=== PATIENT | male | born 1960 | race Two or more races ===

== ENCOUNTER 2017-03-03 09:19 | Emergency (ER) | payer MEDICAID, OTHER ==
[~2017-03-03] VITALS: Ht 167.6 cm; Wt 107.0 kg
[2017-03-03 10:25] LABS: Basophils # (auto) 0.1 uL; Basophils % (auto) 0.8 % (0.0-2.0); DEFINITIVE VIEW TRANSMISSION; Eosinophils # (auto) 0.7 uL; Eosinophils % (auto) 6.8 % (0.0-7.0); Hematocrit 44.6 % (41.0-53.0); Hemoglobin 15.3 g/dL (13.5-17.5); Lymphocytes # (auto) 2.9 uL; Lymphocytes % (auto) 26.9 % (10.0-50.0); Mean Corpuscular Hemoglobin 28.1 pg (28.0-32.0); Mean Corpuscular Hgb Conc. 34.3 g/dL (32.0-36.0); Mean Corpuscular Volume 81.9 fL (80.0-100.0); Mean Platelet Volume 10.4 fL (7.4-10.4); Monocytes # (auto) 0.7 uL; Monocytes % (auto) 6.2 % (0.0-12.0); Neutrophils # (auto) 6.3 uL; Neutrophils % (auto) 59.3 % (37.0-80.0); Platelet Count (auto) 212 10^3/uL (140-450); Red Cell Distribution Width 13.8 % (11.6-16.0); SUSPECT VIEW TRANSMISSION; White Blood Cell 10.6 10^3/uL (4.4-10.8)
[2017-03-03 10:48] LABS: Albumin 3.6 g/dL (3.4-5.0); Anion Gap 7 (5-15); Blood Urea Nitrogen 17 mg/dL (7-18); Carbon Dioxide 28 mmol/L (21-32); Chloride 103 mmol/L (98-107); Glucose 105 mg/dL (74-106); Potassium 3.9 mmol/L (3.5-5.1); Sodium 138 mmol/L (136-145)
[2017-03-03 10:51] LABS: Aspartate Aminotransferase 19 U/L (15-37); BUN/Creatinine Ratio 12.9; GFR African American 72 mL/min; GFR Non-African American 60 mL/min
[2017-03-03 11:04] LABS: Alkaline Phosphatase 69 U/L (45-117); Bilirubin, Total 0.5 mg/dL (0.2-1.0)
[2017-03-03 11:05] LABS: Total Protein 7.2 g/dL (6.4-8.2)
[2017-03-03 12:31] VITALS: BP 172/98
[2017-03-04] MEDS ORDERED: HCTZ25T PO (04:13)
[2017-03-04] MEDS ORDERED: ATEN50TA PO (04:13)
[2017-03-04] MEDS ORDERED: TRAM50TA2 PO (04:13)
[2017-03-04] MEDS ORDERED: IBU800T PO (04:13)
[2017-03-04] MEDS ORDERED: CLON0.1T PO (04:13)
[2017-03-04] MEDS ORDERED: BUSP7.5T4 PO (04:13)
[2017-03-04] MEDS ORDERED: LOSA100T27 PO (04:13)
[2017-03-04] MEDS ORDERED: CARI350T21 PO (04:13)
== END 2017-03-03 12:47 | disposition home or self-care (01) ==
LOC: ER 09:19
DX: I10 Essential (primary) hypertension (principal); R07.9 Chest pain, unspecified
CPT/HCPCS: 36415; 71020; 80053; 84484; 85025; 93005

== ENCOUNTER 2017-03-03 20:38 | Inpatient (IN) | payer MEDICAID ==
[~2017-03-03] VITALS: Ht 170.2 cm; Wt 107.8 kg
[2017-03-03 21:29] LABS: Basophils # (auto) 0.1 uL; Basophils % (auto) 0.8 % (0.0-2.0); Eosinophils # (auto) 0.5 uL; Eosinophils % (auto) 4.8 % (0.0-7.0); Hematocrit 43.5 % (41.0-53.0); Hemoglobin 14.6 g/dL (13.5-17.5); Lymphocytes # (auto) 2.8 uL; Lymphocytes % (auto) 25.4 % (10.0-50.0); Mean Corpuscular Hemoglobin 27.7 pg (28.0-32.0); Mean Corpuscular Hgb Conc. 33.5 g/dL (32.0-36.0); Mean Corpuscular Volume 82.7 fL (80.0-100.0); Mean Platelet Volume 10.2 fL (7.4-10.4); Monocytes # (auto) 0.7 uL; Monocytes % (auto) 6.1 % (0.0-12.0); Neutrophils % (auto) 62.9 % (37.0-80.0); Platelet Count (auto) 202 10^3/uL (140-450); Red Cell Distribution Width 13.7 % (11.6-16.0); SUSPECT VIEW TRANSMISSION; White Blood Cell 11.2 10^3/uL (4.4-10.8)
[2017-03-03 21:52] LABS: Albumin 3.5 g/dL (3.4-5.0); Anion Gap 8 (5-15); BUN/Creatinine Ratio 14.2; Blood Urea Nitrogen 19 mg/dL (7-18); Carbon Dioxide 28 mmol/L (21-32); Chloride 103 mmol/L (98-107); GFR African American 71 mL/min; GFR Non-African American 59 mL/min; Glucose 110 mg/dL (74-106); INR 0.94 (0.9-1.15); Partial Thromboplastin Time 26.4 sec (22.64-33.71); Potassium 3.1 mmol/L (3.5-5.1); Prothrombin Time 10.2 sec (9.37-12.3); Sodium 139 mmol/L (136-145)
[2017-03-03 22:00] LABS: Alkaline Phosphatase 70 U/L (45-117); Aspartate Aminotransferase 19 U/L (15-37); Bilirubin, Total 0.3 mg/dL (0.2-1.0)
[2017-03-04] VITALS (8 sets, daily range): BP systolic 116–161; BP diastolic 61–88
[2017-03-04] MEDS ORDERED: MORPHINE SULFATE 4 MG/ML SYRG IV ONE ×2 (02:00)
[2017-03-04] MEDS ORDERED: ONDANSETRON HCL 4 MG/2 ML VIAL IV ONE (02:00)
[2017-03-04] MEDS ORDERED: ASPirin 81 mg TAB PO ONE (02:00)
[2017-03-04] MEDS ORDERED: NITROGLYCERIN 0.4 MG SL TAB SL PRN (02:15)
[2017-03-04] MEDS ORDERED: MORPHINE SULF INJ 2 MG/ML SYRINGE 1ML IV PRN (02:15)
[2017-03-04] MEDS ORDERED: ONDANSETRON HCL 4 MG/2 ML VIAL IV PRN (02:15)
[2017-03-04] MEDS ORDERED: TEMAZEPAM 15 MG CAP PO PRN (02:15)
[2017-03-04] MEDS ORDERED: POTASSIUM CHL 20 Meq TABLET PO ONE (02:45)
[2017-03-04 03:35] LABS: Urine RBC None Seen /hpf (0 - 3)
[2017-03-04] MEDS: cloNIDine HCL 0.1 MG TAB PO PRN (04:09)
[2017-03-04] MEDS: HYDROcodone-ACET 5/325MG TAB PO PRN ×2 (04:09→10:49)
[2017-03-04] MEDS ORDERED: LOSA100T27 PO (04:13)
[2017-03-04] MEDS ORDERED: CARI350T21 PO (04:13)
[2017-03-04] MEDS ORDERED: HCTZ25T PO (04:13)
[2017-03-04] MEDS ORDERED: IBU800T PO (04:13)
[2017-03-04] MEDS ORDERED: CLON0.1T PO (04:13)
[2017-03-04] MEDS ORDERED: ATEN50TA PO (04:13)
[2017-03-04] MEDS ORDERED: BUSP7.5T4 PO (04:13)
[2017-03-04] MEDS ORDERED: TRAM50TA2 PO (04:13)
[2017-03-04 04:19] LABS: Urine Bilirubin Negative (Negative); Urine Blood Negative /uL (Negative); Urine Color Yellow (Yellow); Urine Glucose Normal (Normal); Urine Hyaline Cast FEW /lpf (0 - 2); Urine Ketone Negative (Negative); Urine Nitrite Negative (Negative); Urine Urobilinogen Normal (Negative); Urine pH 5.5 (5.0-8.0)
[2017-03-04] MEDS: ACETAMINOPHEN 325 MG TAB PO PRN ×2 (06:55→19:27)
[2017-03-04 07:38] LABS: Cholesterol 154 mg/dL (< 200); HDL Cholesterol 36 mg/dL (40-59); LDL Cholesterol 101 mg/dL (< 100); Triglycerides 153 mg/dL (< 150)
[2017-03-04] MEDS ORDERED: HCTZ 25 MG TAB PO SCH (10:00)
[2017-03-04] MEDS: ASPirin 81 mg TAB PO SCH (10:44)
[2017-03-04] MEDS: ENOXAPARIN SOD 40 MG/0.4 ML SYRINGE SC SCH (10:45)
[2017-03-04] MEDS: busPIRone HCL 10 MG TAB PO SCH (10:45)
[2017-03-04] MEDS: ATENOLOL 25 MG TAB PO SCH ×2 (10:46→21:35)
[2017-03-04] MEDS: FAMOTIDINE 20 MG TAB PO SCH ×2 (10:46→21:34)
[2017-03-04] MEDS: LOSARTAN POTASSIUM 50 MG TAB PO SCH (10:48)
[2017-03-04] MEDS: SODIUM CHLORIDE 0.9% 1,000 ML IV SCH (14:00)
[2017-03-04] MEDS: CARISOPRODOL 350 MG TAB PO PRN (16:52)
[2017-03-05] MEDS: HYDROcodone-ACET 5/325MG TAB PO PRN ×5 (00:39→21:39)
[2017-03-05 05:04] VITALS: BP 130/70
[2017-03-05 06:03] LABS: Basophils # (auto) 0 uL; Basophils % (auto) 0.5 % (0.0-2.0); Eosinophils # (auto) 0.4 uL; Eosinophils % (auto) 4.5 % (0.0-7.0); Hematocrit 40.7 % (41.0-53.0); Hemoglobin 13.8 g/dL (13.5-17.5); Lymphocytes # (auto) 2.4 uL; Lymphocytes % (auto) 27.2 % (10.0-50.0); Mean Corpuscular Hemoglobin 28.1 pg (28.0-32.0); Mean Corpuscular Hgb Conc. 33.8 g/dL (32.0-36.0); Mean Platelet Volume 10.2 fL (7.4-10.4); Monocytes # (auto) 0.5 uL; Neutrophils # (auto) 5.7 uL; Neutrophils % (auto) 62.8 % (37.0-80.0); Platelet Count (auto) 178 10^3/uL (140-450); Red Cell Distribution Width 13.8 % (11.6-16.0)
[2017-03-05 06:56] LABS: BUN/Creatinine Ratio 15.7; Bilirubin, Total 0.2 mg/dL (0.2-1.0); Calcium 7.7 mg/dL (8.5-10.1); Magnesium 2.6 mg/dL (1.6-2.6); Potassium 3.2 mmol/L (3.5-5.1); Total Protein 6.3 g/dL (6.4-8.2)
[2017-03-05] MEDS: SODIUM CHLORIDE 0.9% 1,000 ML IV SCH (06:57)
[2017-03-05] MEDS: CARISOPRODOL 350 MG TAB PO PRN (07:05)
[2017-03-05 09:00] VITALS: BP 166/68
[2017-03-05] MEDS: LOSARTAN POTASSIUM 50 MG TAB PO SCH (09:47)
[2017-03-05] MEDS: ASPirin 81 mg TAB PO SCH (09:47)
[2017-03-05] MEDS: FAMOTIDINE 20 MG TAB PO SCH ×2 (09:48→21:38)
[2017-03-05] MEDS: ATENOLOL 25 MG TAB PO SCH ×2 (09:48→21:38)
[2017-03-05] MEDS: ENOXAPARIN SOD 40 MG/0.4 ML SYRINGE SC SCH (09:50)
[2017-03-05] MEDS: busPIRone HCL 10 MG TAB PO SCH ×2 (10:59→21:38)
[2017-03-05] MEDS: cloNIDine HCL 0.1 MG TAB PO PRN (12:49)
[2017-03-05 13:00] VITALS: BP_SYST 168; BP_SYST 170; BP_DIAS 95; BP_DIAS 98
[2017-03-05] MEDS ORDERED: POTASSIUM CHL 20 Meq TABLET PO ONE (15:00)
[2017-03-05] MEDS ORDERED: ARTIFICIAL TEARS 15ml EACHEYE PRN (15:15)
[2017-03-05 17:18] VITALS: BP 156/93
[2017-03-05 21:41] VITALS: BP 142/83
[2017-03-06] MEDS: LORazepam 0.5 MG TAB PO PRN ×3 (03:59→22:32)
[2017-03-06] MEDS: cloNIDine HCL 0.1 MG TAB PO PRN (04:00)
[2017-03-06] MEDS: ACETAMINOPHEN 325 MG TAB PO PRN ×2 (04:03→17:36)
[2017-03-06] MEDS: CARISOPRODOL 350 MG TAB PO PRN ×2 (04:45→17:36)
[2017-03-06 04:59] VITALS: BP 146/91
[2017-03-06 09:00] VITALS: BP 143/94
[2017-03-06] MEDS: busPIRone HCL 10 MG TAB PO SCH ×2 (09:34→22:00)
[2017-03-06] MEDS: ASPirin 81 mg TAB PO SCH (09:34)
[2017-03-06] MEDS: FAMOTIDINE 20 MG TAB PO SCH ×2 (09:35→22:32)
[2017-03-06] MEDS: LOSARTAN POTASSIUM 50 MG TAB PO SCH (09:35)
[2017-03-06] MEDS: ATENOLOL 25 MG TAB PO SCH ×2 (09:35→22:32)
[2017-03-06] MEDS: HYDROcodone-ACET 5/325MG TAB PO PRN (09:36)
[2017-03-06] MEDS: ENOXAPARIN SOD 40 MG/0.4 ML SYRINGE SC SCH (09:36)
[2017-03-06 13:00] VITALS: BP 151/91
[2017-03-06] MEDS ORDERED: traMADol HCL 50 MG TAB PO PRN (14:02)
[2017-03-06 17:00] VITALS: BP 169/90
[2017-03-06 20:00] VITALS: BP 153/83
[2017-03-06 22:00] VITALS: BP 151/83
[2017-03-07 05:00] VITALS: BP 165/94
[2017-03-07] MEDS: CARISOPRODOL 350 MG TAB PO PRN ×2 (05:37→17:30)
[2017-03-07] MEDS: ACETAMINOPHEN 325 MG TAB PO PRN (05:37)
[2017-03-07] MEDS: cloNIDine HCL 0.1 MG TAB PO PRN (06:08)
[2017-03-07 06:14] LABS: BUN/Creatinine Ratio 13.1
[2017-03-07 09:00] VITALS: BP 149/95
[2017-03-07] MEDS: LORazepam 0.5 MG TAB PO PRN (09:48)
[2017-03-07] MEDS: ENOXAPARIN SOD 40 MG/0.4 ML SYRINGE SC SCH (10:00)
[2017-03-07] MEDS: ATENOLOL 25 MG TAB PO SCH (12:22)
[2017-03-07] MEDS: FAMOTIDINE 20 MG TAB PO SCH (12:22)
[2017-03-07] MEDS: ASPirin 81 mg TAB PO SCH (12:22)
[2017-03-07] MEDS: busPIRone HCL 10 MG TAB PO SCH (12:23)
[2017-03-07] MEDS: LOSARTAN POTASSIUM 50 MG TAB PO SCH (12:23)
[2017-03-07] MEDS ORDERED: HYDROcodone-ACET 5/325MG TAB PO ONE (13:00)
[2017-03-07] MEDS ORDERED: HCTZ 25 MG TAB PO ONE (14:00)
[2017-03-07 14:12] VITALS: BP 149/95
[2017-03-07 17:00] VITALS: BP 152/96
== END 2017-03-07 19:04 | disposition home or self-care (01) | DRG 203 ==
LOC: ER 20:38 → TELE 20:39 → TELE-EAST 03-04 03:22
PROVIDERS: ADMIT Nurse Practitioner; ATTEND Internal Medicine
DX: R07.89 Other chest pain (principal); N17.0 Acute kidney failure with tubular necrosis; I12.9 Hypertensive chronic kidney disease with stage 1 through stage 4 chronic kidney disease, or unspecified chronic kidney disease; D72.829 Elevated white blood cell count, unspecified; E87.6 Hypokalemia; E66.9 Obesity, unspecified; F41.9 Anxiety disorder, unspecified; N18.3 Chronic kidney disease, stage 3 (moderate); E78.5 Hyperlipidemia, unspecified; F41.0 Panic disorder [episodic paroxysmal anxiety]; G43.909 Migraine, unspecified, not intractable, without status migrainosus; G89.29 Other chronic pain; M54.5 Low back pain; Z90.89 Acquired absence of other organs; Z68.37 Body mass index [BMI] 37.0-37.9, adult
CPT/HCPCS: 36415; 70450; 71010; 78452; 80048; 80053; 80061; 81001; 83036; 83735; 84484; 85025; 85610; 85730; 93017; 93306; 96374; 96375; J2405

== ENCOUNTER 2018-12-25 14:50 | Emergency (ER) | payer MEDICAID ==
[~2018-12-25] VITALS: Ht 165.1 cm; Wt 90.7 kg
[~2018-12-25 14:50] MED LIST: ATEN50TA PO; BUSP7.5T4 PO; CARI350T22 PO; CLON0.1T PO; HCTZ25T PO; IBUP800T24 PO; LOSA-49 PO; TRAM50TA2 PO
[2018-12-25] MEDS ORDERED: ASPirin 81 mg TAB PO ONE (15:15)
[2018-12-25 15:31] LABS: Basophils # (auto) 0.1 uL; Basophils % (auto) 1.1 % (0.0-2.0); Eosinophils # (auto) 0.5 uL; Eosinophils % (auto) 5.3 % (0.0-7.0); Hematocrit 41.9 % (41.0-53.0); Hemoglobin 14.8 g/dL (13.5-17.5); Lymphocytes # (auto) 2.4 uL; Lymphocytes % (auto) 25.5 % (10.0-50.0); Mean Corpuscular Hemoglobin 29.2 pg (28.0-32.0); Mean Corpuscular Hgb Conc. 35.3 g/dL (32.0-36.0); Mean Corpuscular Volume 82.7 fL (80.0-100.0); Monocytes # (auto) 0.7 uL; Monocytes % (auto) 7.2 % (0.0-12.0); Neutrophils # (auto) 5.8 uL; Neutrophils % (auto) 60.9 % (37.0-80.0); Nucleated Red Blood Cells % 0.1 %; Platelet Count (auto) 178 10^3/uL (140-450); Red Blood Cells 5.06 10^6/uL (4.5-5.90); Red Cell Distribution Width 14.5 % (11.8-14.3); White Blood Cell 9.5 10^3/uL (4.4-10.8)
[2018-12-25 15:52] LABS: Albumin 3.5 g/dL (3.4-5.0); Calcium 8.2 mg/dL (8.5-10.1); Magnesium 2.7 mg/dL (1.6-2.6); Potassium 3.5 mmol/L (3.5-5.1)
[2018-12-25 15:54] LABS: BUN/Creatinine Ratio 14.9; Bilirubin, Total 0.3 mg/dL (0.2-1.0); Total Protein 7.3 g/dL (6.4-8.2)
[2018-12-25 16:18] VITALS: BP 153/100
== END 2018-12-25 16:45 | disposition home or self-care (01) ==
LOC: ER 14:51
DX: R07.89 Other chest pain (principal); F41.9 Anxiety disorder, unspecified; I10 Essential (primary) hypertension
CPT/HCPCS: 36415; 76705; 80053; 83735; 85025; 93005; 94761

== ENCOUNTER 2020-01-30 04:07 | Emergency (ER) | payer MEDICAID ==
[~2020-01-30] VITALS: Ht 170.2 cm; Wt 114.3 kg
[~2020-01-30 04:07] MED LIST changes: +LOSA-39 PO; -LOSA-49 PO
[2020-01-30 05:30] VITALS: BP 141/80
== END 2020-01-30 06:13 | disposition home or self-care (01) ==
LOC: ER 04:10
DX: J39.2 Other diseases of pharynx (principal); R49.0 Dysphonia; I10 Essential (primary) hypertension; Z79.899 Other long term (current) drug therapy
CPT/HCPCS: 71045; 87070; 87804; 87880

== ENCOUNTER 2020-02-05 05:27 | Emergency (ER) | payer MEDICAID ==
[~2020-02-05] VITALS: Ht 170.2 cm; Wt 116.1 kg
[2020-02-05 06:03] VITALS: BP 122/72
[2020-02-05] MEDS ORDERED: SODIUM CHLORIDE 0.9% 1,000 ML IV ONE (06:45)
[2020-02-05 06:47] LABS: Urine Bacteria NONE SEEN /hpf (None Seen); Urine Blood Negative /uL (Negative); Urine Specific Gravity 1.009 (1.001-1.035); Urine WBC <1 /hpf (0 - 3)
[2020-02-05 07:04] LABS: Basophils # (auto) 0.1 10 ^3/uL (0-0.2); Basophils % (auto) 1.3 % (0.0-2.0); Eosinophils # (auto) 0.4 10 ^3/uL (0-0.8); Eosinophils % (auto) 4.5 % (0.0-7.0); Hematocrit 42.9 % (41.0-53.0); Hemoglobin 14.6 g/dL (13.5-17.5); Lymphocytes # (auto) 1.4 10 ^3/uL (0.4-5.4); Lymphocytes % (auto) 17.6 % (10.0-50.0); Mean Corpuscular Hemoglobin 28.5 pg (28.0-32.0); Mean Corpuscular Hgb Conc. 34.1 g/dL (32.0-36.0); Mean Corpuscular Volume 83.6 fL (80.0-100.0); Monocytes # (auto) 0.6 10 ^3/uL (0-1.3); Monocytes % (auto) 7.1 % (0.0-12.0); Neutrophils # (auto) 5.5 10 ^3/uL (1.6-8.6); Neutrophils % (auto) 69.5 % (37.0-80.0); Nucleated Red Blood Cells % 0.1 %; Platelet Count (auto) 172 10^3/uL (140-450); Red Blood Cells 5.14 10^6/uL (4.5-5.90); Red Cell Distribution Width 15.3 % (11.8-14.3); White Blood Cell 7.9 10^3/uL (4.4-10.8)
[2020-02-05] MEDS ORDERED: NIFE-31 PO (07:16)
[2020-02-05] MEDS ORDERED: ATOR20TA50 PO (07:16)
[2020-02-05] MEDS ORDERED: ASPI-231 PO (07:17)
[2020-02-05 07:20] LABS: Alanine Aminotransferase 37 U/L (16-61); Albumin 3.4 g/dL (3.4-5.0); Anion Gap 7 (5-15); BUN/Creatinine Ratio 15.3; Blood Urea Nitrogen 21 mg/dL (7-18); Calcium 8.8 mg/dL (8.5-10.1); Carbon Dioxide 25 mmol/L (21-32); Chloride 105 mmol/L (98-107); GFR African American 69 mL/min; GFR Non-African American 57 mL/min; Glucose 119 mg/dL (74-106); Magnesium 2.3 mg/dL (1.6-2.6); Sodium 137 mmol/L (136-145)
[2020-02-05 07:21] LABS: INR 0.98 (0.9-1.15); Partial Thromboplastin Time 26.6 sec (23.64-32.05)
[2020-02-05 07:25] LABS: Alkaline Phosphatase 82 U/L (45-117); Aspartate Aminotransferase 23 U/L (15-37); Bilirubin, Total 0.4 mg/dL (0.2-1.0); Total Protein 7.6 g/dL (6.4-8.2)
[2020-02-05] MEDS ORDERED: POTASSIUM EFFERVESENT TAB 25 MEQ PO ONE (08:00)
== END 2020-02-05 08:00 | disposition home or self-care (01) ==
LOC: ER 05:27
DX: R68.2 Dry mouth, unspecified (principal); J39.2 Other diseases of pharynx; E87.6 Hypokalemia; R42 Dizziness and giddiness; I10 Essential (primary) hypertension; R51 Headache
CPT/HCPCS: 36415; 71046; 80053; 81001; 83735; 83880; 84484; 85025; 85610; 85730; 93005; 96360; 99285; J7030

== ENCOUNTER 2023-12-24 10:54 | Emergency (ER) | payer MEDICAID ==
[~2023-12-24] VITALS: Ht 170.2 cm; Wt 84.1 kg
[~2023-12-24 10:54] MED LIST changes: +ASPI1TAB20 PO; -ATEN50TA PO; +ATOR20TA50 PO; -BUSP7.5T4 PO; +BUSP7.5T8 PO; -CARI350T22 PO; +CARI350T27 PO; -HCTZ25T PO; +HYDR25TA5 PO; +IBUP-1455 PO; -IBUP800T24 PO; -LOSA-39 PO; +LOSA100T58 PO; +NIFE-31 PO
[2023-12-24] MEDS: ASPirin 81 mg TAB PO ONE (12:15)
[2023-12-24 12:57] LABS: Basophils # (auto) 0.1 10 ^3/uL (0-0.2); Eosinophils # (auto) 0.3 10 ^3/uL (0-0.8); Hemoglobin 9.7 g/dL (13.5-17.5); Lymphocytes # (auto) 1.7 10 ^3/uL (0.4-5.4); Monocytes # (auto) 0.9 10 ^3/uL (0-1.3)
[2023-12-24 13:01] LABS: Basophils % (auto) 0.8 % (0.0-2.0); Hematocrit 29.1 % (41.0-53.0); Lymphocytes % (auto) 16.5 % (10.0-50.0); Mean Corpuscular Hemoglobin 26.2 pg (28.0-32.0); Mean Corpuscular Hgb Conc. 33.5 g/dL (32.0-36.0); Mean Corpuscular Volume 78.2 fL (80.0-100.0); Monocytes % (auto) 8.9 % (0.0-12.0); Neutrophils # (auto) 7.3 10 ^3/uL (1.6-8.6); Neutrophils % (auto) 70.8 % (37.0-80.0); Red Blood Cells 3.72 10^6/uL (4.5-5.90); Red Cell Distribution Width 16.6 % (11.8-14.3); White Blood Cell 10.2 10^3/uL (4.4-10.8)
[2023-12-24 13:11] LABS: Alanine Aminotransferase 29 U/L (7-40); Albumin 3.6 g/dL (3.2-4.8); Alkaline Phosphatase 77 U/L (46-116); Anion Gap 4 (5-15); Aspartate Aminotransferase 20 U/L (13-40); BUN/Creatinine Ratio 14.3 (10.0-20.0); Bilirubin, Total 0.3 mg/dL (0.2-1.0); Blood Urea Nitrogen 20 mg/dL (9-23); Calcium 8.1 mg/dL (8.7-10.4); Carbon Dioxide 29 mmol/L (20-30); Chloride 104 mmol/L (98-107); Glucose 108 mg/dL (74-106); Sodium 137 mmol/L (136-145)
[2023-12-24 14:13] LABS: Urine Bacteria FEW /hpf (None Seen); Urine Blood Negative /uL (Negative); Urine Clarity HAZY (Clear); Urine Color Yellow (Yellow); Urine Mucus FEW (None Seen); Urine Protein, UAD TRACE (Negative); Urine Specific Gravity 1.016 (1.001-1.035); Urine Urobilinogen Normal (Negative); Urine WBC 82 /hpf (0 - 3); Urine pH 6.5 (5.0-8.0)
[2023-12-24] MEDS: SODIUM CHLORIDE 0.9% 1,000 ML IV ONE (14:55)
[2023-12-24 14:56] VITALS: TEMP 97.9
[2023-12-24] MEDS: cloNIDine HCL 0.1 MG TAB PO ONE (15:03)
[2023-12-24] MEDS ORDERED: ATEN-60 PO (15:23)
[2023-12-24] MEDS ORDERED: LOSA100T58 PO (15:23)
[2023-12-24] MEDS ORDERED: MECL25CH85 PO (15:23)
[2023-12-24] MEDS ORDERED: CYCL-838 PO (15:23)
[2023-12-24] MEDS ORDERED: TRAM50TA2 PO (15:23)
[2023-12-24] MEDS ORDERED: CIPR-173 PO (15:23)
[2023-12-24 16:01] VITALS: BP 151/82; PULSE 71; RESP 16; O2SAT 100
== END 2023-12-24 16:01 | disposition home or self-care (01) ==
LOC: ER 10:54
DX: R07.89 Other chest pain (principal); I10 Essential (primary) hypertension; G89.29 Other chronic pain; M25.512 Pain in left shoulder; M25.511 Pain in right shoulder; N39.0 Urinary tract infection, site not specified; Z90.89 Acquired absence of other organs; Z79.82 Long term (current) use of aspirin; Z79.1 Long term (current) use of non-steroidal anti-inflammatories (NSAID); Z79.899 Other long term (current) drug therapy
CPT/HCPCS: 36415; 71046; 80053; 81001; 83735; 84484; 85025; 93005

== ENCOUNTER 2024-04-18 14:59 | Emergency (ER) | payer MEDICAID ==
[~2024-04-18] VITALS: Ht 170.2 cm; Wt 84.3 kg
[~2024-04-18 14:59] MED LIST changes: +ATEN-60 PO; +CARI-578 PO; -CARI350T27 PO; +CIPR-173 PO; +CYCL-838 PO; +LOSA-535 PO; -LOSA100T58 PO; +MECL25CH85 PO
[2024-04-18 16:58] VITALS: BP 167/98; PULSE 94; RESP 16; TEMP 99.7; O2SAT 98
[2024-04-18] MEDS ORDERED: TRAM50TA2 PO (16:59)
[2024-04-18] MEDS ORDERED: IBUP1TAB5 PO (16:59)
== END 2024-04-18 17:07 | disposition home or self-care (01) ==
LOC: ER 15:02
DX: Z76.0 Encounter for issue of repeat prescription (principal); G89.29 Other chronic pain; M25.512 Pain in left shoulder; M25.511 Pain in right shoulder; F41.9 Anxiety disorder, unspecified; I10 Essential (primary) hypertension; Z79.899 Other long term (current) drug therapy

== ENCOUNTER 2024-04-21 18:09 | Inpatient (IN) | payer MEDICAID ==
[~2024-04-21] VITALS: Ht 170.2 cm; Wt 85.7 kg
[2024-04-21 19:32] LABS: Hematocrit 34.6 % (41.0-53.0); Mean Corpuscular Volume 74.2 fL (80.0-100.0); Red Blood Cells 4.66 10^6/uL (4.5-5.90)
[2024-04-21 19:33] LABS: Basophils # (auto) 0.1 10 ^3/uL (0-0.2); Basophils % (auto) 1.1 % (0.0-2.0); Eosinophils # (auto) 0.4 10 ^3/uL (0-0.8); Eosinophils % (auto) 4.2 % (0.0-7.0); Hemoglobin 11.2 g/dL (13.5-17.5); Lymphocytes # (auto) 2.3 10 ^3/uL (0.4-5.4); Lymphocytes % (auto) 22.3 % (10.0-50.0); Mean Corpuscular Hgb Conc. 32.4 g/dL (32.0-36.0); Monocytes # (auto) 0.7 10 ^3/uL (0-1.3); Monocytes % (auto) 6.7 % (0.0-12.0); Neutrophils # (auto) 6.8 10 ^3/uL (1.6-8.6); Neutrophils % (auto) 65.7 % (37.0-80.0); Red Cell Distribution Width 18.8 % (11.8-14.3); White Blood Cell 10.4 10^3/uL (4.4-10.8)
[2024-04-21 19:35] LABS: Alanine Aminotransferase 30 U/L (7-40); Alkaline Phosphatase 73 U/L (46-116); Anion Gap 3 (5-15); Aspartate Aminotransferase 44 U/L (13-40); BUN/Creatinine Ratio 14.2 (10.0-20.0); Blood Urea Nitrogen 22 mg/dL (9-23); Calcium 8.4 mg/dL (8.5-10.1); Carbon Dioxide 31 mmol/L (20-30); Chloride 103 mmol/L (98-107); Glucose 96 mg/dL (74-106); Potassium 3.3 mmol/L (3.5-5.1); Sodium 137 mmol/L (136-145)
[2024-04-21 19:36] LABS: Bilirubin, Total 0.4 mg/dL (0.2-1.0); Total Protein 6.7 g/dL (5.7-8.2)
[2024-04-21 19:48] LABS: INR 0.98 (0.9-1.15); Partial Thromboplastin Time 23.3 SEC (24.5-34.5); Prothrombin Time 10.4 sec (9.3-11.8)
[2024-04-21] MEDS ORDERED: MORPHINE SULFATE INJ 2 MG/ml SYRG IV PRN (20:30)
[2024-04-21] MEDS ORDERED: DOCUSATE SOD 100 MG CAP PO PRN (20:30)
[2024-04-21] MEDS ORDERED: hydrALAZINE HCL 20 MG/ML VL IV PRN (20:30)
[2024-04-21] MEDS ORDERED: NITROGLYCERIN 0.4 MG SL TAB SL PRN (20:30)
[2024-04-21] MEDS ORDERED: ONDANSETRON HCL 4 MG/2 ML VIAL IV PRN (20:30)
[2024-04-22] MEDS: MECLIZINE HCL 25 MG TAB PO ONE (00:29)
[2024-04-22] MEDS: hydrALAZINE HCL 20 MG/ML VL IV PRN (00:35)
[2024-04-22] MEDS: MECLIZINE HCL 25 MG TAB PO SCH (00:35)
[2024-04-22] MEDS: SODIUM CHLORIDE 0.9% 1,000 ML IV SCH (00:36)
[2024-04-22] MEDS: POTASSIUM CHL 20 Meq TABLET PO ONE (00:36)
[2024-04-22 00:45] VITALS: PULSE 87; RESP 18; O2SAT 100
[2024-04-22] MEDS: SODIUM CHLORIDE 0.9% 500 ML IV SCH (01:05)
[2024-04-22] MEDS: HYDROcodone-ACET 5/325MG TAB PO PRN (01:35)
[2024-04-22 05:03] LABS: Basophils # (auto) 0.1 10 ^3/uL (0-0.2); Eosinophils # (auto) 0.5 10 ^3/uL (0-0.8); Lymphocytes # (auto) 1.4 10 ^3/uL (0.4-5.4); Monocytes # (auto) 0.7 10 ^3/uL (0-1.3)
[2024-04-22 05:06] LABS: Basophils % (auto) 0.8 % (0.0-2.0); Hematocrit 34.7 % (41.0-53.0); Hemoglobin 11.3 g/dL (13.5-17.5); Lymphocytes % (auto) 14.1 % (10.0-50.0); Mean Corpuscular Hemoglobin 24.4 pg (28.0-32.0); Mean Corpuscular Hgb Conc. 32.4 g/dL (32.0-36.0); Mean Corpuscular Volume 75.1 fL (80.0-100.0); Monocytes % (auto) 6.7 % (0.0-12.0); Neutrophils # (auto) 7.5 10 ^3/uL (1.6-8.6); Neutrophils % (auto) 73.4 % (37.0-80.0); Red Blood Cells 4.62 10^6/uL (4.5-5.90); Red Cell Distribution Width 18.8 % (11.8-14.3); White Blood Cell 10.2 10^3/uL (4.4-10.8)
[2024-04-22 05:11] LABS: Chloride 103 mmol/L (98-107); Potassium 3.3 mmol/L (3.5-5.1); Sodium 137 mmol/L (136-145)
[2024-04-22 05:12] LABS: Calcium 8.5 mg/dL (8.5-10.1)
[2024-04-22 05:17] LABS: BUN/Creatinine Ratio 13.7 (10.0-20.0); Blood Urea Nitrogen 23 mg/dL (9-23); Glucose 117 mg/dL (74-106); Triglycerides 162 mg/dL (< 150)
[2024-04-22 05:18] LABS: LDL Cholesterol 80 mg/dL (< 100)
[2024-04-22 05:19] LABS: Cholesterol 173 mg/dL (< 200); HDL Cholesterol 70 mg/dL (40-59)
[2024-04-22 08:15] LABS: Anion Gap 4 (5-15); Carbon Dioxide 30 mmol/L (20-30)
[2024-04-22] MEDS: ENOXAPARIN SOD 40 MG/0.4 ML SYRINGE SC SCH (10:21)
[2024-04-22] MEDS: ATORVASTATIN 20 MG TAB PO SCH (10:21)
[2024-04-22] MEDS: ASPirin 81 mg TAB PO SCH (10:21)
[2024-04-22] MEDS: ACETAMINOPHEN 325 MG TAB PO PRN (10:22)
[2024-04-22] MEDS: IOHEXOL 350 MG/ML 100ML IJ ONE (11:17)
[2024-04-22 20:16] LABS: LDL Cholesterol 92 mg/dL (< 100); Triglycerides 113 mg/dL (< 150)
[2024-04-22 20:17] LABS: HDL Cholesterol 76 mg/dL (40-59)
[2024-04-22 20:18] LABS: Cholesterol 189 mg/dL (< 200)
[2024-04-22] MEDS: CLOPIDOGREL BISULFATE 75 MG TAB PO SCH (20:58)
[2024-04-22 21:35] VITALS: PULSE 91; RESP 14; O2SAT 98
[2024-04-23] VITALS (7 sets, daily range): BP systolic 143–164; BP diastolic 95–100; PULSE 78–105; RESP 18–20; TEMP 97.6–98.5; O2SAT 95–99
[2024-04-23 05:58] LABS: Basophils # (auto) 0.1 10 ^3/uL (0-0.2); Basophils % (auto) 1.1 % (0.0-2.0); Lymphocytes % (auto) 22.9 % (10.0-50.0); Monocytes # (auto) 0.9 10 ^3/uL (0-1.3); Neutrophils # (auto) 5.8 10 ^3/uL (1.6-8.6); Neutrophils % (auto) 61.7 % (37.0-80.0)
[2024-04-23 06:02] LABS: Eosinophils # (auto) 0.4 10 ^3/uL (0-0.8); Eosinophils % (auto) 4.7 % (0.0-7.0); Hematocrit 36.3 % (41.0-53.0); Hemoglobin 11.5 g/dL (13.5-17.5); Lymphocytes # (auto) 2.2 10 ^3/uL (0.4-5.4); Mean Corpuscular Hemoglobin 24.2 pg (28.0-32.0); Mean Corpuscular Hgb Conc. 31.5 g/dL (32.0-36.0); Mean Corpuscular Volume 76.8 fL (80.0-100.0); Monocytes % (auto) 9.6 % (0.0-12.0); Nucleated Red Blood Cells % 0.2 %; Red Blood Cells 4.73 10^6/uL (4.5-5.90); Red Cell Distribution Width 19.1 % (11.8-14.3); White Blood Cell 9.4 10^3/uL (4.4-10.8)
[2024-04-23 06:11] LABS: Anion Gap 9 (5-15); Carbon Dioxide 27 mmol/L (20-30); Chloride 106 mmol/L (98-107); Potassium 3.4 mmol/L (3.5-5.1); Sodium 142 mmol/L (136-145)
[2024-04-23 06:12] LABS: Calcium 8.6 mg/dL (8.7-10.4)
[2024-04-23 06:17] LABS: Blood Urea Nitrogen 15 mg/dL (9-23); Glucose 114 mg/dL (74-106)
[2024-04-23 06:36] LABS: BUN/Creatinine Ratio 9.7 (10.0-20.0)
[2024-04-23] MEDS ORDERED: CYCLOBENZAPRINE HCL 10 MG TAB PO PRN (06:45)
[2024-04-23] MEDS ORDERED: IBUP1TAB5 PO (07:49)
[2024-04-23] MEDS ORDERED: CARI-579 PO (07:49)
[2024-04-23] MEDS: traMADol HCL 50 MG TAB PO PRN (07:52)
[2024-04-23] MEDS: FUROSEMIDE 40 MG/4 ML VIAL IV SCH (10:27)
[2024-04-23] MEDS ORDERED: ASPI1TAB20 PO (16:26)
[2024-04-23] MEDS ORDERED: CLOP75TA70 PO (16:26)
[2024-04-23] MEDS ORDERED: ATOR20TA50 PO (16:26)
[2024-04-23] MEDS: CLOPIDOGREL BISULFATE 75 MG TAB PO ONE (21:17)
[2024-04-23] MEDS: ASPirin 81 mg TAB PO ONE (21:18)
[2024-04-24] VITALS (9 sets, daily range): BP systolic 129–166; BP diastolic 65–89; PULSE 74–123; RESP 16–20; TEMP 97.9–98.8; O2SAT 7–99
[2024-04-24] MEDS: HYDROcodone-ACET 5/325MG TAB PO PRN (00:38)
[2024-04-24 06:39] LABS: Basophils # (auto) 0.1 10 ^3/uL (0-0.2); Eosinophils # (auto) 0.4 10 ^3/uL (0-0.8)
[2024-04-24 06:41] LABS: Basophils % (auto) 1.2 % (0.0-2.0); Eosinophils % (auto) 4.7 % (0.0-7.0); Hematocrit 33.3 % (41.0-53.0); Hemoglobin 10.9 g/dL (13.5-17.5); Lymphocytes # (auto) 1.7 10 ^3/uL (0.4-5.4); Lymphocytes % (auto) 22.6 % (10.0-50.0); Mean Corpuscular Hemoglobin 24.4 pg (28.0-32.0); Mean Corpuscular Hgb Conc. 32.6 g/dL (32.0-36.0); Mean Corpuscular Volume 74.8 fL (80.0-100.0); Monocytes # (auto) 0.7 10 ^3/uL (0-1.3); Monocytes % (auto) 8.9 % (0.0-12.0); Neutrophils # (auto) 4.8 10 ^3/uL (1.6-8.6); Neutrophils % (auto) 62.6 % (37.0-80.0); Red Blood Cells 4.46 10^6/uL (4.5-5.90); Red Cell Distribution Width 19.1 % (11.8-14.3); White Blood Cell 7.7 10^3/uL (4.4-10.8)
[2024-04-24 06:45] LABS: Chloride 105 mmol/L (98-107); Sodium 142 mmol/L (136-145)
[2024-04-24 06:46] LABS: Anion Gap 8 (5-15); Calcium 8.6 mg/dL (8.7-10.4); Carbon Dioxide 29 mmol/L (20-30)
[2024-04-24 06:51] LABS: Blood Urea Nitrogen 18 mg/dL (9-23); Glucose 105 mg/dL (74-106)
[2024-04-24] MEDS: POTASSIUM CHL 20MEQ/100ML 100 ML IV ONE (12:55)
[2024-04-24] MEDS: MORPHINE SULFATE INJ 2 MG/ml SYRG IV ONE (12:57)
[2024-04-24] MEDS: LIDOCAINE VISCOUS 2% 15ML UD PO ONE (14:48)
[2024-04-24] MEDS: MIDAZOLAM HCL 2MG/2ML 2ml VIAL (1mg/ml) IV ONE (14:51)
[2024-04-24] MEDS: fentaNYL CITRATE 100 MCG/2 ML VL IV ONE (14:52)
[2024-04-24] MEDS: CARISOPRODOL 350 MG TAB PO PRN (21:14)
[2024-04-25 01:00] VITALS: BP 157/102; PULSE 81; RESP 22; TEMP 98.4; O2SAT 98
[2024-04-25 05:00] VITALS: BP 153/95; PULSE 87; RESP 22; TEMP 98.1; O2SAT 98
[2024-04-25 07:29] LABS: Basophils # (auto) 0.1 10 ^3/uL (0-0.2); Basophils % (auto) 1.1 % (0.0-2.0); Eosinophils # (auto) 0.4 10 ^3/uL (0-0.8); Eosinophils % (auto) 3.1 % (0.0-7.0); Hematocrit 37.6 % (41.0-53.0); Hemoglobin 12.2 g/dL (13.5-17.5); Lymphocytes # (auto) 2.1 10 ^3/uL (0.4-5.4); Lymphocytes % (auto) 18.5 % (10.0-50.0); Mean Corpuscular Hemoglobin 24.3 pg (28.0-32.0); Mean Corpuscular Hgb Conc. 32.4 g/dL (32.0-36.0); Monocytes # (auto) 0.9 10 ^3/uL (0-1.3); Monocytes % (auto) 7.9 % (0.0-12.0); Neutrophils # (auto) 7.9 10 ^3/uL (1.6-8.6); Neutrophils % (auto) 69.4 % (37.0-80.0); Nucleated Red Blood Cells % 0.1 %; Red Blood Cells 5.02 10^6/uL (4.5-5.90); Red Cell Distribution Width 19.5 % (11.8-14.3); White Blood Cell 11.5 10^3/uL (4.4-10.8)
[2024-04-25 07:36] LABS: Anion Gap 3 (5-15); Carbon Dioxide 31 mmol/L (20-30); Chloride 104 mmol/L (98-107); Potassium 3.3 mmol/L (3.5-5.1); Sodium 138 mmol/L (136-145)
[2024-04-25 07:42] LABS: Blood Urea Nitrogen 18 mg/dL (9-23); Glucose 121 mg/dL (74-106)
[2024-04-25 07:51] LABS: BUN/Creatinine Ratio 11.6 (10.0-20.0)
[2024-04-25 08:00] VITALS: PULSE 78
[2024-04-25 09:01] VITALS: BP 176/103; PULSE 98; RESP 20; TEMP 97.7; O2SAT 97
[2024-04-25] MEDS: POTASSIUM CHL 20 Meq TABLET PO ONE (11:24)
== END 2024-04-25 11:40 | disposition home or self-care (01) | DRG 45 ==
LOC: ER 18:09 → TELE 21:00 → TELE-WESTW 04-23 05:15
PROVIDERS: ADMIT Nurse Practitioner Family; ATTEND Nurse Practitioner Family
PROC: B24BZZ4 Ultrasonography of Heart with Aorta, Transesophageal (ICD-10-PCS; principal; 2024-04-24)
DX: I63.9 Cerebral infarction, unspecified (principal); N17.9 Acute kidney failure, unspecified; I13.0 Hypertensive heart and chronic kidney disease with heart failure and stage 1 through stage 4 chronic kidney disease, or unspecified chronic kidney disease; I50.32 Chronic diastolic (congestive) heart failure; E87.6 Hypokalemia; F41.9 Anxiety disorder, unspecified; G25.0 Essential tremor; N18.9 Chronic kidney disease, unspecified; G89.4 Chronic pain syndrome; E78.5 Hyperlipidemia, unspecified; Z83.3 Family history of diabetes mellitus; Z82.49 Family history of ischemic heart disease and other diseases of the circulatory system; Z79.82 Long term (current) use of aspirin; Z79.899 Other long term (current) drug therapy
CPT/HCPCS: 36415; 70450; 70496; 70551; 71045; 80048; 80053; 80061; 83880; 84484; 85025; 85379; 85610; 85730; 93005; 93306; 93312; 93970; 97163; 99152; G0378; J2250; J3480